=== PATIENT | female | born 1975 | race Two or more races ===

== ENCOUNTER 2017-09-30 10:17 | Emergency (ER) | payer OTHER ==
[~2017-09-30] VITALS: Ht 149.9 cm; Wt 69.9 kg
[2017-09-30 10:29] VITALS: BP 148/88
[2017-09-30 11:06] LABS: Eosinophils # (auto) 0.2 uL; Hemoglobin 8.6 g/dL (12.2-16.2); Monocytes # (auto) 0.5 uL; Neutrophils # (auto) 4.7 uL; Nucleated Red Blood Cells % 0.1 %
[2017-09-30 11:09] LABS: Basophils # (auto) 0.1 uL; Basophils % (auto) 1.9 % (0.0-2.0); Eosinophils % (auto) 2.1 % (0.0-7.0); Hematocrit 28.6 % (36.0-46.0); Lymphocytes % (auto) 26.4 % (10.0-50.0); Mean Corpuscular Hemoglobin 20.1 pg (28.0-32.0); Mean Corpuscular Hgb Conc. 30.2 g/dL (32.0-36.0); Mean Corpuscular Volume 66.8 fL (80.0-100.0); Monocytes % (auto) 6.6 % (0.0-12.0); Platelet Count (auto) 469 10^3/uL (140-450); Red Blood Cells 4.28 10^6/uL (4.0-5.20); Red Cell Distribution Width 19.6 % (11.8-14.3); White Blood Cell 7.5 10^3/uL (4.4-10.8)
[2017-09-30 11:30] LABS: Alanine Aminotransferase 20 U/L (13-56); Albumin 3.6 g/dL (3.4-5.0); Alkaline Phosphatase 62 U/L (45-117); Anion Gap 7 (5-15); Aspartate Aminotransferase 15 U/L (15-37); BUN/Creatinine Ratio 16.5; Bilirubin, Total 0.2 mg/dL (0.2-1.0); Blood Alcohol < 3.0 mg/dL (0-5); Blood Urea Nitrogen 14 mg/dL (7-18); Calcium 7.9 mg/dL (8.5-10.1); Carbon Dioxide 25 mmol/L (21-32); Chloride 106 mmol/L (98-107); GFR African American 94 mL/min; GFR Non-African American 78 mL/min; Glucose 142 mg/dL (74-106); Magnesium 2.5 mg/dL (1.6-2.6); Potassium 4.2 mmol/L (3.5-5.1); Sodium 138 mmol/L (136-145); Total Protein 7.7 g/dL (6.4-8.2)
== END 2017-09-30 12:54 | disposition left against medical advice (07) ==
LOC: ER 10:17
DX: Z53.21 Procedure and treatment not carried out due to patient leaving prior to being seen by health care provider (principal)
CPT/HCPCS: 36415; 80053; 80320; 83735; 85025